=== PATIENT | female | born 1995 | race Asian ===

== ENCOUNTER 2019-12-28 08:59 | Emergency (ER) | payer BC ==
[~2019-12-28] VITALS: Ht 154.9 cm; Wt 46.7 kg
--- NOTE | 2019-12-28 09:19 | Emergency Room Report ---
History of Present Illness General Chief Complaint: Laceration Source: Patient Present Illness HPI Patient is a 24-year-old female denies any significant past medical history who presents to the ER complaining of laceration. Patient states that she cut her finger while cutting a lemon. She states that there is scant bleeding. Last tetanus unknown. She is right-hand dominant. Laceration on her left pinky. Patient History Past Surgical History: none Pertinent Family History: none Social History: Denies: smoking, alcohol use, drug use Review of Systems All Other Systems: negative except mentioned in HPI Physical Exam Sp02 EP Interpretation: reviewed, normal General Appearance: no apparent distress, alert, GCS 15, non-toxic Head: normocephalic, atraumatic Eyes: bilateral eye normal inspection, bilateral eye PERRL ENT: hearing grossly normal, normal pharynx, no angioedema, normal voice Neck: full range of motion, supple/symm/no masses Respiratory: chest non-tender, lungs clear, normal breath sounds, speaking full sentences Cardiovascular #1: regular rate, rhythm Gastrointestinal: normal bowel sounds, non tender, soft, non-distended, no guarding, no rebound Rectal: deferred Musculoskeletal: normal range of motion Neurologic: alert, motor strength/tone normal, oriented x3, sensory intact, responsive, speech normal Psychiatric: no suicidal/homicidal ideation Skin: other - 2 cm linear laceration palmar surface of left pinky finger, just distal to the PIP, no tendon involvement, normal range of motion, superficial, scant blood Lymphatic: no adenopathy Procedures Laceration/Wound Repair Laceration/Wound Repair : Wound Location: upper extremity Wound's Depth, Shape: superficial, linear Wound Length (cm): 2 Wound Explored: clean Betadine Prep?: No Wound Debrided: None Wound Repaired With: Dermabond Sling Applied?: No Patient Tolerated: Well Complications: None Medical Decision Making Diagnostic Impression: Primary Impression: Laceration ER Course Laceration repaired. Patient updated on her tetanus. After discussing risks and benefits of further diagnostics, treatment plans, as well as indications for and risks of admission, the patient is agreeable to being discharged home. I have explained that their evaluation and treatment in the emergency department today is an important step towards them achieving better health but that their evaluation today is not intended to replace further evaluation and treatment by a physician in their local clinic. I have explained that while the current findings suggest no immediate life threatening emergency they will require further evaluation and treatment by a physician of their choice in their area. They understand that it will be necessary for them to review the final reports of their ED visit with their clinic physician. We have reviewed indications for return to the Emergency Department. I have explained that additional time may need to pass and/or additional testing as an outpatient may be necessary before a definitive diagnosis can be made. They tell me they are willing to follow up as instructed within the timeframe I recommend. They appear to understand what we discussed. Additionally they understand that if they are unable to be seen by an outpatient physician they are welcome, and in fact should, return to the Emergency Department for a repeat evaluation. The patient is stable at time of discharge. Disposition: HOME, SELF-CARE Condition: Stable Referrals: [facility]. [facility] Patient Instructions: Laceration Care, Adult, [id number] Additional Instructions: The patient was provided with discharge instructions, notified to follow-up with a primary care doctor and or specialist in the next 24-48 hours, and to return to the ED if they have worsening of their symptoms. Please note that this report is being documented using [employer] technology. This can lead to erroneous entry secondary to incorrect interpretation by the dictating instrument. Stephanie Dill M.D. December 28, 2019 09:19
--- NOTE | 2019-12-28 09:20 | NUR ---
ED Nurse Note: pt ambulated to ED from home d/t lac on LT pinky finger x 1 hr ago. bleeding controlled. Per pt she was just cutting lemon placed on her hand when she accidentally cut her skin. Pt is AOx4, calm and cooperative. VSS, on RA. per pt she had tdap last 2016.
[2019-12-28 09:21] VITALS: BP 104/73
--- NOTE | 2019-12-28 09:32 | NUR ---
ED Nurse Note: Irrigated wound with saline, patted dry then applied dermabond.
[2019-12-28 09:41] VITALS: BP 125/79
--- NOTE | 2019-12-28 09:41 | NUR ---
ER DISCHARGE NOTE: Patient is cleared to be discharged per ERMD, pt is aox4, on room air, with stable vital signs. pt was given dc instructions, pt was able to verbalize understanding, pt id band removed. pt is able to ambulate with steady gait. pt took all belongings.
== END 2019-12-28 09:41 | disposition home or self-care (01) ==
LOC: EMR 09:25
DX: S61.217A Laceration without foreign body of left little finger without damage to nail, initial encounter (principal); W26.0XXA Contact with knife, initial encounter; Y93.G9 Activity, other involving cooking and grilling; Y92.9 Unspecified place or not applicable
CPT/HCPCS: 99283